=== PATIENT | male | born 1980 | race Caucasian/White ===

== ENCOUNTER 2022-02-19 00:16 | Emergency (ER) | payer OTHER ==
[2022-02-19 00:50] LABS: HEMOGLOBIN 14.8 gm/dl (14.0-17.5); RED BLOOD COUNT 5.4 M/UL (4.20-5.50); WHITE BLOOD COUNT 16.4 K/UL (4.5-11.0)
[2022-02-19 01:04] LABS: BUN/CREATININE RATIO 19 (0-10)
[2022-02-19] MEDS ORDERED: ZOFRAN ODT 4 MG4 MG GT (02:09)
== END 2022-02-19 02:25 | disposition home or self-care (01) ==
LOC: ER1 00:16
PROVIDERS: Nurse Practitioner
DX: R11.2 Nausea with vomiting, unspecified (principal); R19.7 Diarrhea, unspecified; F17.210 Nicotine dependence, cigarettes, uncomplicated
CPT/HCPCS: 71045; 80053; 80076; 82150; 82550; 82553; 83690; 84484; 85025; 99284; Q9967

== ENCOUNTER 2022-07-09 00:14 | Emergency (ER) | payer OTHER ==
[~2022-07-09 00:14] MED LIST: ZOFRAN ODT 4 MG4 MG GT
[2022-07-09 02:28] LABS: HEMOGLOBIN 14.5 gm/dl (14.0-17.5); RED BLOOD COUNT 5.21 M/UL (4.20-5.50); WHITE BLOOD COUNT 14.5 K/UL (4.5-11.0)
[2022-07-09 02:53] LABS: BUN/CREATININE RATIO 12 (0-10)
[2022-07-09] MEDS ORDERED: REGLAN10 MG PO (04:36)
== END 2022-07-09 05:00 | disposition home or self-care (01) ==
LOC: ER1 00:14
PROVIDERS: Physician Assistant
DX: R10.84 Generalized abdominal pain (principal); R19.7 Diarrhea, unspecified; F17.210 Nicotine dependence, cigarettes, uncomplicated; R40.2410 Glasgow coma scale score 13-15, unspecified time; R10.817 Generalized abdominal tenderness
CPT/HCPCS: 80053; 81001; 82150; 83605; 83690; 85025; 87086; 96374; 99284; J2765; Q9967